=== PATIENT | male | born 1950 ===

== ENCOUNTER 2017-04-23 08:39 | Day surgery (SDC) | payer OTHER ==
[~2017-04-23 08:39] MED LIST: HYZAAR 100-251 UDTAB PO; INTESTINEX680 MG PO; NEURONTIN300 MG PO; OMEPRAZOLE20 MG PO; PERCOCET 5-3251 EACH PO; PERCOCET 5/3251 TAB PO; POLY119PG PO; SIMVASTATIN40 MG PO; TRANXENE T-TAB7.5 MG PO; VYTORIN 10-20 M1 TAB PO; [UNRECOGNIZED DRUG - OTHER] PO
== END 2017-04-23 12:55 | disposition home or self-care (01) ==
LOC: AMB-ENDOS 08:39
DX: K57.30 Diverticulosis of large intestine without perforation or abscess without bleeding (principal)